=== PATIENT | female | born 1950 | race Caucasian/White ===

== ENCOUNTER 2016-05-03 10:16 | Day surgery (SDC) | payer OTHER, MEDICARE ==
[~2016-05-03 10:16] MED LIST: LR 1,000 ML IV SCH
[2016-05-03] MEDS ORDERED: LIDOCAINE 1% 5 ML SDV ONE (11:02)
[2016-05-03 11:24] LABS: % IMMATURE GRANULYOCYTES 0.3 % (0.0-1.1); ABSOLUTE IMMATURE GRANULOCYTES 0.02 10^3/uL (0.00-0.10); ADD DIFF? NO; ADD MORPH? NO; ADD SCAN? NO; ATYPICAL LYMPHOCYTE FLAG 10 (0-99); FRAGMENT RBC FLAG 0 (0-99); HEMATOCRIT 39.3 % (38.0-47.0); HEMOGLOBIN 13.5 g/dL (12.6-16.3); LEFT SHIFT FLG 0 (0-99); LIPEMIA HEMOLYSIS FLAG 90 (0-99); MEAN CELL HEMOGLOBIN 32.9 pg (27.9-34.1); MEAN CELL HEMOGLOBIN CONCENTR. 34.4 g/dL (32.4-36.7); MEAN CELL VOLUME 95.9 fL (81.5-99.8); MEAN PLATELET VOLUME 9.7 fL (8.7-11.7); PLATELET CLUMPS FLAG 0 (0-99); PLATELET COUNT 251 10^3/uL (150-400); RED CELL DISTRIBUTION WIDTH 12.8 % (11.5-15.2)
[2016-05-03] MEDS ORDERED: SILVER NITRATE APPLICATOR 1 APPL TP ONE (11:24)
[2016-05-03] MEDS ORDERED: LIDOCAINE 1% 30 ML SDV ONE (11:53)
[2016-05-03] MEDS ORDERED: LIDOCAINE 2% 5 ML SDV ONE (11:53)
[2016-05-03] MEDS ORDERED: MIDAZOLAM 2 MG/2 ML VIAL ONE (12:18)
[2016-05-03] MEDS ORDERED: fentaNYL 100 MCG/2 ML INJ ONE (12:31)
[2016-05-03] MEDS ORDERED: PROPOFOL/EMULSION 500 MG/50 ML BOTTLE IV ONE (12:31)
[2016-05-03] MEDS ORDERED: LIDO/EPI 1% **Not for Epidural 20 ML MDV ONE (12:50)
[2016-05-03] MEDS ORDERED: DEXAMETHASONE 4 MG/ML VIAL ONE (12:57)
[2016-05-03] MEDS ORDERED: ONDANSETRON 4 MG/2 ML VIAL ONE (12:57)
[2016-05-03] MEDS ORDERED: KETOROLAC 30 MG/1 ML SDV ONE (13:06)
--- NOTE | 2016-05-03 13:36 | GOP ---
[f rep st] OPERATIVE REPORT DATE OF OPERATION: 05/03/2016 SURGEON: Suze Laguna MD CERTIFIED LACTATION COUNSELOR: None. ANESTHESIA: LMA. PREOPERATIVE DIAGNOSIS: Postmenopausal bleeding and submucosal fibroid. POSTOPERATIVE DIAGNOSIS: Postmenopausal bleeding and submucosal fibroid. PROCEDURE PERFORMED: Hysteroscopy, myomectomy. FINDINGS: Two small 1 cm submucosal fibroids. SPECIMENS: Submucosal fibroid. ESTIMATED BLOOD LOSS: Less than 10 mL. INDICATIONS: Nettie is a 65-year-old, who had an episode of postmenopausal bleeding, had a normal endometrial biopsy. Pelvic ultrasound revealed a 2 cm submucosal fibroid. Recommended proceeding to hysteroscopy for removal, to which the patient agreed. DESCRIPTION OF PROCEDURE: Patient was taken to the operating room, where she was prepped and draped in a normal sterile fashion in the high dorsal lithotomy position. A surgical timeout was performed verifying the patient's name, date of , planned procedure, and site. The patient had her bladder emptied prior to the procedure. A bivalve speculum was placed in the patient's vagina and the anterior aspect of the cervix was grasped with a single-toothed tenaculum. The patient received 8 mL of 1% lidocaine with epinephrine. Her cervix was dilated 6 mm. The Hysteroscope was placed into the uterine cavity that revealed a small anterior wall submucosal fibroid in the midline and 1 small submucosal fibroid near the right tubal ostia. These were both removed with morcellator blade. Fluid deficit was 70 mL. Hysteroscope was removed. [place] speculum was removed. Speculum was removed. Hemostasis was obtained and all counts were correct x2. The patient was stable to recovery room. FLUID DEFICIT: 70 mL. COMPLICATIONS: None. OUTCOME: Stable to recovery room. /[id number]/MODL MTDD
== END 2016-05-03 14:30 | disposition home or self-care (01) ==
LOC: FSGY 10:16
PROVIDERS: ATTEND Obstetrics & Gynecology
PROC: 0UCB8ZZ Extirpation of Matter from Endometrium, Via Natural or Artificial Opening Endoscopic (ICD-10-PCS; principal; 2016-05-03 12:00)
DX: D25.0 Submucous leiomyoma of uterus (principal); N95.0 Postmenopausal bleeding; N39.3 Stress incontinence (female) (male); G20 Parkinson's disease; E03.9 Hypothyroidism, unspecified; Z86.12 Personal history of poliomyelitis; F41.9 Anxiety disorder, unspecified; Z78.0 Asymptomatic menopausal state
CPT/HCPCS: 58561; C1782; J1100; J1885; J2250; J2405; J2704; J3010

== ENCOUNTER → 2016-07-24 | Outpatient (CLI) | payer OTHER, MEDICARE | LOC: FIMAGING 09:50 | DX: Z12.31 Encounter for screening mammogram for malignant neoplasm of breast (principal); Z80.3 Family history of malignant neoplasm of breast | CPT/HCPCS: G0202 ==

== ENCOUNTER → 2016-08-02 | Outpatient (CLI) | payer OTHER, MEDICARE | LOC: FIMAGING 13:15 | PROVIDERS: ATTEND Obstetrics & Gynecology | DX: Z12.39 Encounter for other screening for malignant neoplasm of breast (principal); R92.0 Mammographic microcalcification found on diagnostic imaging of breast | CPT/HCPCS: 76641; G0206 ==

== ENCOUNTER → 2016-08-06 | Day surgery (SDC) | payer OTHER, MEDICARE ==
[~2016-08-06] MED LIST changes: -LR 1,000 ML IV SCH; +THROMBIN (BOVINE) 5,000 UNIT VIAL TP ONE
== END | disposition home or self-care (01) ==
LOC: FIMAGING 13:10
PROVIDERS: ATTEND Obstetrics & Gynecology
PROC: 0HBU3ZX Excision of Left Breast, Percutaneous Approach, Diagnostic (ICD-10-PCS; principal; 2016-08-06)
DX: N60.12 Diffuse cystic mastopathy of left breast (principal); Z80.3 Family history of malignant neoplasm of breast
CPT/HCPCS: G0206

== ENCOUNTER → 2017-02-05 | Outpatient (CLI) | payer OTHER, MEDICARE | LOC: FIMAGING 14:49 | PROVIDERS: ATTEND Obstetrics & Gynecology | DX: Z03.89 Encounter for observation for other suspected diseases and conditions ruled out (principal) | CPT/HCPCS: G0206 ==

== ENCOUNTER → 2017-04-30 | Outpatient (CLI) | payer OTHER, MEDICARE | LOC: FIMAGING 15:47 | PROVIDERS: ATTEND Orthopaedic Surgery Sports Medicine | DX: R05 Cough (principal); M54.9 Dorsalgia, unspecified ==

== ENCOUNTER 2017-06-04 15:26 | Emergency (ER) | payer OTHER, MEDICARE ==
[2017-06-04 15:42] VITALS: PULSE 62
[2017-06-04] MEDS ORDERED: NS 1,000 ML IV ONE (15:55)
[2017-06-04] MEDS ORDERED: DIAZEPAM 10 MG/2 ML SYR IVP ONE (15:58)
--- NOTE | 2017-06-04 16:01 | EDPHY ---
H & P Stated Complaint: neck spasms, balance problems Time Seen by Provider: 06/04/17 15:45 HPI/ROS: CHIEF COMPLAINT: Neck spasming HISTORY OF PRESENT ILLNESS: Patient is a 67-year-old female with a history of Parkinson's disease followed by Dr. Salgado at [facility]. She and her come to the ER complaining of neck stiffness. She states that when it began 2 days ago she initially felt slightly lightheaded but that resolved fairly quickly however since then she has had pain bilaterally in her neck muscles. Also a posterior headache. No visual changes. No vertigo sensation. No nausea vomiting. No chest pain or shortness of breath. No fever. She denies any trauma or whiplash-type injuries. Today she was following up with the orthopedist about her shoulder who recommended she come to the ER to have her neck evaluated. 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 This is baseline. She has not had any focal deficits. She has not had any altered mental status. REVIEW OF SYSTEMS: Constitutional: denies: chills, fever, recent illness, recent injury EENTM: denies: blurred vision, double vision, nose congestion Respiratory: denies: cough, shortness of breath Cardiac: denies: chest pain, irregular heart rate, lightheadedness, palpitations Gastrointestinal/Abdominal: denies: abdominal pain, diarrhea, nausea, vomiting, blood streaked stools Genitourinary: denies: dysuria, frequency, hematuria, pain Musculoskeletal: See HPI Skin: denies: lesions, rash, jaundice, bruising Neurological: denies: headache, numbness, paresthesia, tingling, dizziness, weakness Hematologic/Lymphatic: denies: blood clots, easy bleeding, easy bruising Immunologic/allergic: denies: HIV/AIDS, transplant EXAM: GENERAL: Well-appearing, well-nourished and in no acute distress. HEAD: Atraumatic, normocephalic. EYES: Pupils equal round and reactive to light, extraocular movements intact, sclera anicteric, conjunctiva are normal. ENT: TMs normal, nares patent, oropharynx clear without exudates. Moist mucous membranes. NECK: Pain with massage of lateral neck muscles. No bony tenderness or step- offs or deformities. Pain with flexion of neck more than extension. LUNGS: Breath sounds clear to auscultation bilaterally and equal. No wheezes rales or rhonchi. HEART: Regular rate and rhythm without murmurs, rubs or gallops. ABDOMEN: Soft, nontender, normoactive bowel sounds. No guarding, no rebound. No masses appreciated. BACK: No CVA tenderness, no spinal tenderness, step-offs or deformities EXTREMITIES: Normal range of motion, no pitting or edema. No clubbing or cyanosis. NEUROLOGICAL: Cranial nerves II through XII grossly intact. Normal speech, normal gait. Normal strength and movement in all extremities, left leg slightly weaker and smaller. normal sensation PSYCH: Normal mood, normal affect. SKIN: Warm, dry, normal turgor, no visible rashes or lesions. Source: Patient Exam Limitations: No limitations - Personal History Current Tetanus/Diphtheria Vaccine: Yes Current Tetanus Diphtheria and Acellular Pertussis (TDAP): Yes - Medical/Surgical History Hx Asthma: No Hx Chronic Respiratory Disease: No Hx Diabetes: No Hx Cardiac Disease: No Hx Renal Disease: No Hx Cirrhosis: No Hx Alcoholism: No Hx HIV/AIDS: No Hx Splenectomy or Spleen Trauma: No Other PMH: PARKINSONS, HYPOTHYROID, L ACL repair, polio with L defecits - Family History Significant Family History: No pertinent family hx - Social History Smoking Status: Never smoked Alcohol Use: Sober Drug Use: None Constitutional: Initial Vital Signs Temperature (C) 36.8 C 06/04/17 15:39 Heart Rate 62 06/04/17 15:39 Respiratory Rate 16 06/04/17 15:39 Blood Pressure 108/66 06/04/17 15:39 O2 Sat (%) 96 06/04/17 15:39 O2 Delivery Mode Room Air O2 (L/minute) 2 Allergies/Adverse Reactions: latex Allergy (Mild, Verified 06/04/17 15:37) Itching Home Medications: Medication Instructions Recorded Azilect 01/16/15 Synthroid 01/16/15 Estradiol 04/24/16 Mirapex 1.5 mg 04/24/16 Rytary 145 04/24/16 Rytary 245 04/24/16 Biotin 06/04/17 Colace 06/04/17 Melatonin 06/04/17 Medical Decision Making - Diagnostics EKG Interpretation: An EKG obtained and was read and documented in trace view. Please see trace view for full reading and report. Sinus rhythm, no acute ischemic changes Imaging Results: Imaging Impressions Head CT 06/04/17 15:56 Impression: No evidence for acute intracranial abnormality. Results called and discussed with Dr. Mariano Velasquez at 06/04/2017 17:18. Head CTA 06/04/17 15:56 Impression: 1. Normal intracranial arterial circulation. No evidence of embolic disease or aneurysm. 2. Patent venous system. Findings discussed with Emergency Department physician, Mariano Velasquez M.D., at June 04, 2017 at 1746. Neck CTA 06/04/17 15:56 Impression: 1. Widely patent vertebral and carotid arteries. No dissection or occlusion. 2. Moderate to severe degenerative disk disease at C4-C5, C5-C6 and C6-C7. Measurement of carotid stenosis is based on the residual internal carotid diameter with [place] Symptomatic Carotid Endarterectomy Trial (NASCET) based stenosis levels. Findings discussed with Emergency Department physician, Mariano Velasquez on 2017, 17:46. Imaging: Discussed imaging studies w/ body recall instructor Radiologist ED Course/Re-evaluation: 6:15 p.m. I discussed the case with the patient's primary neurologist Dr. Salgado. He does not think that this is related to her Parkinson's. He agrees that spinal tap is not indicated. He does not recommend any further testing at this time but to treat for muscle spasm and pain and have her follow up in the office. 6:30 p.m. the patient is feeling better. She and her wish to go home. They declined prescription medications. They will follow up with the neurologist as discussed. Differential Diagnosis: Partial list of the Differential diagnosis considered include but were not limited to; muscle strain, whiplash, migraine, dissection and although unlikely based on the history and physical exam, I also considered the tumor, CVA, meningitis. I discussed these differential diagnoses and the plan with the patient as well as the usual and expected course. The patient understands that the diagnosis is provisional and that in medicine we are not always correct and that further workup is often warranted. Usual and customary warnings were given. All of the patient's questions were answered. The patient was instructed to return to the emergency department should the symptoms at all worsen or return, otherwise to followup with the physician as we discussed. - Data Points Laboratory Results: Laboratory Results 06/04/17 16:20 06/04/17 16:20 06/04/17 06/04/17 06/04/17 16:20 16:20 16:20 WBC 9.71 10^3/uL H 10^3/uL (3.80-9.50) RBC 3.95 10^6/uL L 10^6/uL (4.18-5.33) Hgb 13.0 g/dL g/dL (12.6-16.3) Hct 38.5 % % (38.0-47.0) MCV 97.5 fL fL (81.5-99.8) MCH 32.9 pg pg (27.9-34.1) MCHC 33.8 g/dL g/dL (32.4-36.7) RDW 13.1 % % (11.5-15.2) Plt Count 250 10^3/uL 10^3/uL (150-400) MPV 9.9 fL fL (8.7-11.7) Neut % (Auto) 75.6 % H % (39.3-74.2) Lymph % (Auto) 16.2 % % (15.0-45.0) [place] % (Auto) 6.7 % % (4.5-13.0) Eos % (Auto) 0.7 % % (0.6-7.6) Baso % (Auto) 0.6 % % (0.3-1.7) Nucleat RBC Rel Count 0.0 % % (0.0-0.2) Absolute Neuts (auto) 7.34 10^3/uL H 10^3/uL (1.70-6.50) Absolute Lymphs (auto) 1.57 10^3/uL 10^3/uL (1.00-3.00) Absolute Monos (auto) 0.65 10^3/uL 10^3/uL (0.30-0.80) Absolute Eos (auto) 0.07 10^3/uL 10^3/uL (0.03-0.40) Absolute Basos (auto) 0.06 10^3/uL 10^3/uL (0.02-0.10) Absolute Nucleated RBC 0.00 10^3/uL 10^3/uL (0-0.01) Immature Gran % 0.2 % % (0.0-1.1) Immature Gran # 0.02 10^3/uL 10^3/uL (0.00-0.10) PT 13.7 SEC SEC (12.0-15.0) INR 1.03 (0.83-1.16) Sodium 139 mEq/L mEq/L (135-145) Potassium 4.3 mEq/L mEq/L (3.5-5.2) Chloride 104 mEq/L mEq/L (97-110) Carbon Dioxide 25 mEq/l mEq/l (22-31) Anion Gap 10 mEq/L mEq/L (8-16) BUN 14 mg/dL mg/dL (7-23) Creatinine 0.7 mg/dL mg/dL (0.6-1.0) Estimated GFR > 60 Glucose 94 mg/dL mg/dL (70-100) Calcium 9.8 mg/dL mg/dL (8.5-10.4) Troponin I < 0.012 ng/mL ng/mL (0.000-0.034) Medications Given: Discontinued Medications Diazepam (Valium) 5 mg IVP EDNOW ONE Stop: 06/04/17 15:59 Last Admin: 06/04/17 16:19 Dose: 5 mg Sodium Chloride (Ns) 1,000 mls @ 0 mls/hr IV ONCE ONE; Wide Open PRN Reason: Protocol Stop: 06/04/17 15:56 Last Admin: 06/04/17 16:19 Dose: 1,000 mls Ketorolac Tromethamine (Toradol) 30 mg IVP EDNOW ONE Stop: 06/04/17 18:08 Last Admin: 06/04/17 18:25 Dose: 30 mg Departure - Departure Disposition: Home, Routine, Self-Care Clinical Impression: Neck pain, bilateral Condition: Fair Instructions: Cervical Strain (DC) Referrals: Licha Morrison MD [Primary Care Provider] - 2-3 days, call for appt.
--- NOTE | 2017-06-04 16:15 | CPEKG ---
Heart Rate: 56 RR Interval: 1071 P-R Interval: 148 QRSD Interval: 74 QT Interval: 404 QTC Interval: 390 P [place]: 49 QRS [place]: 24 T Wave [place]: 41 EKG Severity - NORMAL ECG - EKG Impression: SINUS RHYTHM Electronically Signed By: Mariano Velasquez 04-Jun-2017 16:28:00
[2017-06-04 16:28] LABS: PLATELET COUNT 250 10^3/uL (150-400)
[2017-06-04 16:37] LABS: INR 1.03 (0.83-1.16); PROTIME(PATIENT) 13.7 SEC (12.0-15.0)
[2017-06-04] MEDS ORDERED: IOPAMIDOL (ISOVUE 370) 100 ML BTL IV ONE (16:48)
[2017-06-04] MEDS ORDERED: KETOROLAC 30 MG/1 ML SDV IVP ONE (18:07)
[2017-06-04 19:02] VITALS: BP 120/65; RESP 18; TEMP 97.9; O2SAT 97
== END 2017-06-04 19:01 | disposition home or self-care (01) ==
DX: M54.2 Cervicalgia (principal); E86.9 Volume depletion, unspecified; G20 Parkinson's disease; Z91.040 Latex allergy status
CPT/HCPCS: 70450; 70496; 70498; 93005; 96361; 96374; 96375; 99285; J1885; J3360; Q9967

== ENCOUNTER → 2017-08-22 | Outpatient (CLI) | payer OTHER, MEDICARE | LOC: FIMAGING 07:41 | PROVIDERS: ATTEND Internal Medicine | DX: Z12.31 Encounter for screening mammogram for malignant neoplasm of breast (principal) ==

== ENCOUNTER 2018-01-22 11:15 | Emergency (ER) | payer OTHER, MEDICARE ==
[2018-01-22 11:31] VITALS: BP 100/59
--- NOTE | 2018-01-22 13:41 | EDPHY ---
H & P Time Seen by Provider: 01/22/18 11:35 HPI/ROS: HPI Fell and hit head. 67-year-old female by private vehicle with . Patient was at home. She was sitting down. She stood up, felt lightheaded and then fell striking the left posterior lateral aspect of her head on a bar stool. She is not sure she lost consciousness. She has a mild posterior lateral headache at this time. Denies palpitations. Denies associated shortness of breath, chest pain, sudden onset thunderclap headache. No neck pain. No new loss of sensation or weakness in her extremities. ROS: Constitutional: No fever, no chills. As above. Eyes: No discharge. No changes in vision. ENT: No sore throat. No nasal congestion or rhinorrhea. Respiratory: No cough. No shortness of breath. Cardiac: No chest pain, no palpitations. Gastrointestinal: No abdominal pain, no vomiting, no diarrhea. Genitourinary: No hematuria. No dysuria or increased frequency with urination. Musculoskeletal: No back pain. No neck pain. No myalgias or arthralgias. Skin: No rashes. Neurological: As above. No focal weakness or altered sensation. Past medical history: Parkinson's, hypothyroid, left ACL repair, polio with left-sided deficits. Social history: Physical Exam: General Appearance: Alert, no distress. This patient is responding to questions appropriately and in full sentences. This patient appears well- hydrated and well-nourished. Head: Normocephalic atraumatic except for a mild left posterior parietal scalp hematoma. No bony step-off or deformity noted on palpation of this area. Eyes: Pupils equal and round no pallor or injection. No lid edema, erythema or injection. No photophobia. No nystagmus. ENT, Mouth: Mucous membranes are moist. The pharyngeal tissues are unremarkable. No edema or swelling. No asymmetry suggestive of abscess. No erythema or exudates. No tongue lacerations or abrasions. Respiratory: There are no retractions, lungs are clear to auscultation with good air movement bilaterally. Cardiovascular: Regular rate and rhythm. No murmur. Gastrointestinal: Abdomen is soft and nontender, no masses, bowel sounds normal. No focal tenderness at McBurney's point. No Cline sign. Neurological: Motor sensory function is baseline. Cranial nerves are normal. Gait is baseline. Skin: Warm and dry, no rashes. Musculoskeletal: Neck is supple and nontender. No midline cervical, thoracic, lumbar tenderness on palpation. Extremities are symmetrical. All joints range without pain or impingement. Psychiatric: No agitation. No depression. Database: EKG: EKG time is 1:37 p.m.; EKG shows a narrow complex normal sinus rhythm with a ventricular rate of 59. The OK, QRS, QT intervals are within normal limits. There are no ST-T wave changes indicative of ischemic or injury pattern. No evidence of right heart strain. No evidence of WPW, Brugada syndrome, hypertrophic cardiomyopathy. Interpreted by me. Imaging: CT head without contrast: Negative. Results were discussed with staff radiologist Dr. Thai Brown. Procedures: Emergency department course: Triage vital signs reviewed and are unremarkable. The patient is afebrile. She was placed on a quality assurance monitor final. EKG obtained and reviewed by myself. She was sent for CT imaging of her head. She consents to emergency department workup. 1:40 p.m., the patient was re-evaluated. Repeat neurologic Assessment is nonfocal. Results of EKG and CT of head discussed with patient and her . She feels comfortable going home at this time and I feel she is safe for discharge. Follow-up and return to emergency department precautions discussed with the 2 of them. Her presentation is consistent with an orthostatic hypotension/noncardiac etiology of syncope. Return to emergency department precautions were thoroughly reviewed with him. All of their questions were answered. The patient was discharged home in good condition. Differential Diagnosis: The differential diagnosis on this patient includes but is not limited to orthostatic hypotension, noncardiac syncope. A arrhythmia, anemia, acute coronary syndrome, pulmonary embolism, subarachnoid hemorrhage unlikely. This represents a partial list of diagnoses considered. These considerations are based on history, physical exam, past history, reassessment and diagnostic testing. Smoking Status: Never smoked Constitutional: Initial Vital Signs Temperature (C) 36.9 C 01/22/18 11:28 Heart Rate 67 01/22/18 11:28 Respiratory Rate 18 01/22/18 11:28 Blood Pressure 100/59 L 01/22/18 11:28 O2 Sat (%) 94 01/22/18 11:28 O2 Delivery Mode Room Air Allergies/Adverse Reactions: latex Allergy (Mild, Verified 01/22/18 11:27) Itching Home Medications: Medication Instructions Recorded Azilect 01/16/15 Synthroid 01/16/15 Estradiol 04/24/16 Mirapex 1.5 mg 04/24/16 Rytary 145 04/24/16 Rytary 245 04/24/16 Biotin 06/04/17 Colace 06/04/17 Seroquel 01/22/18 Medical Decision Making - Diagnostics Imaging Results: Imaging Impressions Head CT 01/22/18 12:04 Impression: 1. Cerebrovascular atherosclerosis. 2. No acute hemorrhage or epidural/subdural hematoma. 3. No skull fracture. Findings and recommendations discussed with Emergency Department physician, Kat Adame MD, at 1310 hour, 01/22/2018. Final report concurs with initial preliminary interpretation. Departure - Departure Disposition: Home, Routine, Self-Care Clinical Impression: Syncope Condition: Good Instructions: Syncope (ED) Additional Instructions: Read and follow provided instructions. Follow-up with your primary care physician in 1-2 days for re-evaluation. Keep well hydrated. Return to the emergency department for lightheadedness, heart palpitations, chest pain or other serious concerns. Referrals: Licha Morrison MD [Primary Care Provider] - As per Instructions
--- NOTE | 2018-01-22 15:05 | CPEKG ---
Test Reason : OPEN Blood Pressure : / mmHG Vent. Rate : 059 BPM Atrial Rate : 059 BPM P-R Int : 139 ms QRS Dur : 079 ms QT Int : 430 ms P-R-T Axes : 045 039 056 degrees QTc Int : 426 ms Sinus rhythm Confirmed by Kat Adame ([id number]) on 01/22/2018 3:04:47 PM Referred By: Confirmed By:Kat Adame
== END 2018-01-22 13:57 | disposition home or self-care (01) ==
DX: R55 Syncope and collapse (principal); E03.9 Hypothyroidism, unspecified; G20 Parkinson's disease

== ENCOUNTER → 2018-08-25 | Outpatient (CLI) | payer OTHER, MEDICARE | LOC: FIMAGING 09:45 | PROVIDERS: ATTEND Internal Medicine | DX: Z12.31 Encounter for screening mammogram for malignant neoplasm of breast (principal); Z80.3 Family history of malignant neoplasm of breast ==